=== PATIENT | female | born 1950 | race Caucasian/White ===

== ENCOUNTER 2017-06-13 07:30 | Inpatient (IN) ==
[~2017-06-13 07:30] MED LIST: ACETAMINOPHEN 500 MG TABLET PO ONE; DEXAMETHASONE 4 MG/ML INJECTION IVP ONE; FAMOTIDINE PB 20 MG/50 ML BAG IV ONE; LIDOCAINE 1% (10mg/ml) 2mL INJ PF SDV ID ONE; MELOXICAM 15 MG TABLET PO ONE; METOCLOPRAMIDE 10mg/2ml INJECTION IVP ONE; NOZIN NASAL SWAB NAS ONE; ONDANSETRON 4 MG/2 ML INJECTION IVP ONE; TRANEXAMIC ACID 1,000 MG in NS 100 ML IV ONE
[2017-06-13] MEDS ORDERED: EPINEPHrine PF 0.25 MG, BUPIVACAINE 0.25% PF 30 ML, MORPHINE SULFATE 15 MG, KETOROLAC I... OPSITE ONE (08:00)
[2017-06-13 08:26] VITALS: BMI 37.3
[2017-06-13] MEDS ORDERED: CEFAZOLIN 1 G INJECTION IVP ONE (08:35)
[2017-06-13] MEDS ORDERED: VANCOMYCIN 1,000 MG INJECTION ONE (09:22)
--- NOTE | 2017-06-13 09:29 | Anesthesia Preoperative Report ---
Anesthesia Preoperative Record - Date and Time Date: 06/13/17 Preoperative Diagnosis: RT TKA M17.11 Proposed Procedure: Right total knee replacement NPO Since Date: 06/13/17 NPO Since Time: 00:00 Allergies/Adverse Reactions: Allergies Allergy/AdvReac Type Severity Reaction Status Date / Time bee venom protein (honey bee) Allergy Unknown swelling, Verified 06/13/17 08:36 redness - Vital Signs Vital Signs: Temperature 98.6 F 06/13/17 08:26 Pulse Rate 85 06/13/17 08:44 Respiratory Rate 19 06/13/17 08:26 Blood Pressure 165/88 H 06/13/17 08:26 Pulse Oximetry 93 06/13/17 08:26 Height and Weight: Height 5 ft 1 in Weight 89.7 kg Body Mass Index 37.3 - Medications Inpatient Medications: Current Medications Lactated Ringer's (Lactated Ringers) 1,000 mls @ 50 mls/hr IV .Q20H COLEEN Last Admin: 06/13/17 08:49 Dose: 50 mls/hr Sodium Chloride (Iv Flush) 10 - 80 ml IV PRN PRN PRN Reason: [place] Home Medications: Home Medications Medication Instructions Recorded Confirmed Type Beclomethasone Dipropionate [Qvar 2 puff IH BID #0 12/01/14 06/13/17 History 80] Buspirone HCl 15 mg PO BID #0 12/01/14 06/13/17 History Lovastatin 20 mg PO HS #0 tab 12/01/14 06/13/17 History [place]-3S/Dha/Epa/Fish Oil [Fish 1,200 mg PO DAILY #0 cap 12/01/14 06/13/17 History Oil 1,200 mg Softgel] PARoxetine HCl [Paroxetine HCl] 40 mg PO DAILY #0 tab 12/01/14 06/13/17 History aspirin 81 mg chewable tablet 81 mg PO DAILY tab 04/08/17 06/13/17 History Albuterol HFA Inhaler [Ventolin 2 puff PO BID 06/06/17 06/13/17 History Hfa 90 mcg/actuation] Glucosamine 500 mg PO DAILY 06/06/17 06/13/17 History Multivitamin with Iron 1 each PO DAILY 06/06/17 06/13/17 History [Multivitamins with Iron] Propylthiouracil 1 tab PO DAILY 06/06/17 06/13/17 History CephALEXin [Keflex] 500 mg PO QID 06/13/17 06/13/17 History Is Patient on Beta Nora?: No - Medical History Respiratory: Reports: Asthma (well controlled) Cardiovascular: Reports: Heart Murmur (no cardiac followthrough), High Cholesterol, Valvular Heart Disease (MVP. Not significant) Gastrointestional: Reports: Morbid Obesity DENIES: Gastroesophageal Reflux Disease Renal/Endocrine: Reports: Thyroid Disease (Grave's/hyper. well controlled with meds) - Surgical History HEENT Surgeries: Reports: Tonsillectomy Respiratory Surgery/Treatments: Reports: CPAP Use GI Surgery/Treatments: Reports: Colonoscopy (diverticulosis) Musculoskeletal Surgery/Tx: Reports: Total Hip Replacement (Lt KELLEN) Anesthesia Reactions: None Hx Family Anesthesia Reaction: No History of Motion Sickness: No - Social History Smoking Status: Never smoker Substance Use Type: does not use - Pertinent Findings EKG: Sinus Rhythm - Physical Exam Respiratory Exam: Present: lungs clear, bilateral breath sounds equal Cardiovascular Exam: Present: regular rate and rhythm, systolic murmur (minor) - Airway Assessment Mallampati Score: II TMD: 3 Fingerbreadths Neck Extension: fair Teeth: chipped teeth/crowns (front top) Overall Assessment: no airway concerns - ASA ASA Score: 2 - Plan Anesthesia: General TIVA Peripheral Nerve Block: Other (post op adductor canal block) - Discussion Discussion: Discussed risks/options/alternatives of anesthesia and questions answered. Patient consents. Nursing pain assessment noted. Present for Discussion: children Attestation Statement: Prior to the delivery of any anesthetic medication, I examined the patient, developed the plan, obtained the patient's consent and discussed the risk and benefits of the procedure with the patient/guardian. - Additional Information Seen by Anesthesia: Yes
[2017-06-13] MEDS ORDERED: ANESTHESIA MIXTURE 50 ML IV ONE (09:30)
[2017-06-13] MEDS ORDERED: FentaNYL 100 MCG/2 ML INJECTION ONE (09:55)
[2017-06-13] MEDS ORDERED: MIDAZOLAM 2mg/2ml INJECTION ONE (09:55)
[2017-06-13] MEDS ORDERED: HYDROMORPHONE 2 MG/ML INJECTION ONE ×2 (10:14→11:56)
[2017-06-13] MEDS ORDERED: PROPOFOL 20 ML ONE ×2 (10:19→11:31)
[2017-06-13] MEDS ORDERED: VANCOMYCIN 1,000 MG INJECTION IAR ONE (11:00)
[2017-06-13] MEDS ORDERED: PROPOFOL 0 MG/0 ML VIAL IV ONE (11:26)
--- NOTE | 2017-06-13 11:33 | Operative Note ---
- Procedure Preoperative Diagnosis: Right knee primary degenerative joint disease Postoperative Diagnosis: Same as preoperative diagnosis. Surgeon: Shane Zepeda MD Printer'S Devil: Jefry Christianson Complications: None. Anesthesia: General Estimated Blood Loss: See Anesthesia Record. Fluids: Please see Anesthesia Record. Description of Procedure: Mrs. Perez and her right knee were identified and marked in the preoperative holding area. She was brought back to the operating suite after a saphenous nerve block was placed in the preoperative holding area. General anesthesia was administered. She was placed supine on the operating table. The right lower extremity was prepped and draped in my normal sterile fashion. Timeout was performed. The [employer] robot was used during the surgery. She had a fixed varus deformity with no flexion contracture. A standard anterior midline incision followed by medial parapatellar arthrotomy was performed. Anterior fat pad and meniscus were removed. The patella was resurfaced to a size 29. Tibial and femoral arrays were placed both within the original incision. Checkpoints were then placed both in the femur and the tibia. The bone was then registered with the [employer] robot. Osteophytes were removed and gaps were captured both 90 and 0 with correction. Because she had no flexion contracture and large posterior osteophytes I balanced her at 16 mm in extension 18 mm in flexion. The [employer] robotic arm was then used to assist with the bone cuts. Posterior osteophytes and remaining meniscus were removed. Trial components were placed. We used a 3 femur and a 3 tibia with a 11 mm spacer. I did perform a partial MCL release using an 18-gauge needle. She tracked well and was well balanced throughout range of motion. Her bone quality was very good so decision was made to use press-fit components. The components were then impacted into the bone. The knee was ranged one more time to ensure good stability, balance and patellar tracking. 1 g of vancomycin powder was then placed into the knee joint. The capsulotomy was then closed with #1 Vicryl. I then left my painter assistant to close the subcutaneous tissue with 2-0 Vicryl. Running 4-0 Monocryl will be used in the subcuticular layer. Dermabond will be used on the skin followed by sterile dressing. After drapes are removed patient will be taken to recovery room under the care of anesthesia.
[2017-06-13] MEDS ORDERED: ROPIVACAINE 0.5% (5mg/ml) 30ml INJ ONE (11:51)
--- NOTE | 2017-06-13 12:47 | XRay Report ---
Indication: postoperative image PROCEDURE: XR knee RT 2V: Encounter: Initial Comparison: April 08, 2017 Findings: Postoperative changes of right total knee replacement are seen. There is expected postoperative subcutaneous gas. No evidence of hardware failure or acute fracture. No retained radiopaque surgical instruments or sponges. Overlying material causing artifact. Impression: New right total knee prosthesis without evidence of immediate complication. .
[2017-06-13] MEDS ORDERED: TRAMADOL 50 MG TABLET PO PRN (13:02)
[2017-06-13] MEDS ORDERED: ONDANSETRON 4 MG/2 ML INJECTION IVP PRN (13:02)
[2017-06-13] MEDS ORDERED: NAPROXEN 220 MG TABLET PO PRN (13:02)
[2017-06-13] MEDS ORDERED: DiphenhydrAMINE 25 MG CAPSULE PO PRN (13:02)
[2017-06-13] MEDS ORDERED: NOZIN NASAL SWAB NAS ONE (13:02)
[2017-06-13] MEDS ORDERED: DiphenhydrAMINE 50 MG/ML INJECTION IVP PRN (13:02)
[2017-06-13] MEDS ORDERED: LORazepam 1 MG TABLET PO PRN (13:02)
[2017-06-13] MEDS: NS 1,000 ML IV SCH (13:07)
--- NOTE | 2017-06-13 13:43 | Anesthesia Procedure Note ---
Peripheral Nerve Blockade - Procedure Physician: Lalo Zepeda MD Date: 06/13/17 Surgical Procedure: Right total knee replacement Discussion: Discussed risks/options/alternatives of anesthesia and questions answered. Patient consents. Nursing pain assessment noted. Block Start: 12:09 Block Stop: 12:13 Blocked Employed: Adductor Canal Indication: Post-Operative Pain Approach: Right Side Confirmed Position: Supine Patient: Consent, Risks/Benefits Discussed, Informed, Post Block Act. Discussed IV Sedation: No Sedation: Awake Initial Vital Signs: Temperature 98.6 F 06/13/17 08:26 Temperature Source Oral 06/13/17 08:26 Pulse Rate 94 06/13/17 08:26 Respiratory Rate 19 06/13/17 08:26 Blood Pressure 165/88 H 06/13/17 08:26 Blood Pressure Mean 113 06/13/17 08:26 Blood Pressure Position Sitting 06/13/17 08:26 Pulse Oximetry 93 06/13/17 08:26 Oxygen Delivery Method 06/13/17 08:26 Post Vital Signs: Temperature 98.2 F 06/13/17 12:46 Pulse Rate 100 06/13/17 12:45 Respiratory Rate 14 06/13/17 12:45 Blood Pressure 113/57 06/13/17 12:45 Pulse Oximetry 96 06/13/17 12:45 Initial Pain Pain Score: 5 Post Block Pain Score: 4 Prep: Duraprep Ultrasound Used?: Yes - Injectate Ropivacaine (%): 0.5 Ropivacaine (mL): 20 Was Epi 1:200,000 Used?: No Injection: Injection made incrementally with constant monitoring and aspiration every ml
--- NOTE | 2017-06-13 13:44 | Anesthesia Postoperative Note ---
- Date and Time Date: 06/13/17 Time: 12:30 - Status Patient Participated in Evaluation: Patient Participated in Person Vital Signs: Temperature 98.2 F 06/13/17 12:46 Pulse Rate 100 06/13/17 12:45 Respiratory Rate 14 06/13/17 12:45 Blood Pressure 113/57 06/13/17 12:45 Pulse Oximetry 96 06/13/17 12:45 Respiratory Function: Airway Patent Cardiovascular Function: Regular Pulse EKG: Sinus Rhythm Mental Status: Alert and Oriented Hydration: IV Infusing Complications During Recover: None Apparent - Follow-Up Instructions Instructions: Per Surgeon
[2017-06-13] MEDS: ACETAMINOPHEN 325 MG TABLET PO SCH ×3 (17:34→22:02)
[2017-06-13] MEDS: NOZIN NASAL SWAB NAS SCH ×2 (17:42→22:02)
[2017-06-13] MEDS: DEXAMETHASONE 4 MG/ML INJECTION IVP SCH (17:44)
[2017-06-13] MEDS: CEFAZOLIN 2 G in NS 100 ML IV SCH (17:51)
[2017-06-13] MEDS ORDERED: SALINE FLUSH 10ml SYRINGE IV PRN (18:02)
[2017-06-13] MEDS ORDERED: LR 1,000 ML IV SCH (18:15)
[2017-06-13] MEDS: BUDESONIDE INH.SOLN 0.5mg/2ml NEB AEROSOL SCH (20:10)
[2017-06-13] MEDS: ALBUTEROL 2.5mg/3ml (0.083%) NEB AEROSOL SCH (20:10)
[2017-06-13] MEDS ORDERED: SENNOSIDES 8.6 MG TABLET PO SCH (21:00)
[2017-06-13] MEDS ORDERED: LOVASTATIN 20 MG TABLET PO SCH (21:00)
[2017-06-13] MEDS: DOCUSATE SODIUM 100 MG CAPSULE PO SCH (22:01)
[2017-06-13] MEDS: ASPIRIN *EC* 81 MG TABLET PO SCH (22:02)
[2017-06-13] MEDS: BUSPIRONE 15 MG TABLET PO SCH (22:03)
[2017-06-13] MEDS: PROPYLTHIOURACIL 50 MG TABLET PO SCH (22:03)
[2017-06-14] MEDS: DEXAMETHASONE 4 MG/ML INJECTION IVP SCH (01:52)
[2017-06-14] MEDS: CEFAZOLIN 2 G in NS 100 ML IV SCH (01:57)
[2017-06-14] MEDS: NS 1,000 ML IV SCH (03:11)
[2017-06-14 03:16] VITALS: RESP 18
[2017-06-14] MEDS: NOZIN NASAL SWAB NAS SCH ×2 (06:31→13:22)
--- NOTE | 2017-06-14 08:07 | Extended Care Facility Orders ---
Admission Orders Admit to:: Senior Care Allergies/Adverse Reactions: Allergies bee venom protein (honey bee) Allergy (Unknown, Verified 06/13/17 08:36) swelling, redness Admitting Diagnosis: RT TKA M17.11 Admitting Physician: Lalo Zepeda MD Attending Physician: Lalo Zepeda MD Anticiapted Length of Stay: 30 days or less Rehab Potential: good Rehab Prognosis: good Diet: 06/13/17 Dinner Regular Diet [DIET] Diet Modifications: May use Facility Protocol or Standing Orders: Yes May have flu vaccine: Yes Evaluations/Treatment: PT, OT Senior [facility] Certification: I certify that SNF services are required to be given on an Inpatient basis because of the patients need for shelter care on a continuing basis for the condition(s) for which he/she received inpatient hospital services prior to his/her transfer to the SNF. SNF inpatient care is necessary for the following reasons Indication for Senior Care: Postop Assessment Care - Additional Information In Event of Arrest: Start CPR,call 911,send patient to the ER Referrals: Lalo Zepeda MD [Physician] - 07/08/17 9:15 am
[2017-06-14] MEDS ORDERED: POLYETHYL GLYCOL 3350 17gm PACKET PO SCH (09:00)
[2017-06-14] MEDS ORDERED: PAROXETINE 40 MG TABLET PO SCH (09:00)
[2017-06-14] MEDS: ALBUTEROL 2.5mg/3ml (0.083%) NEB AEROSOL SCH (09:32)
[2017-06-14] MEDS: BUDESONIDE INH.SOLN 0.5mg/2ml NEB AEROSOL SCH (09:32)
[2017-06-14] MEDS: PROPYLTHIOURACIL 50 MG TABLET PO SCH (09:40)
[2017-06-14] MEDS: DOCUSATE SODIUM 100 MG CAPSULE PO SCH (09:41)
[2017-06-14] MEDS: BUSPIRONE 15 MG TABLET PO SCH (09:41)
[2017-06-14] MEDS: ACETAMINOPHEN 325 MG TABLET PO SCH ×2 (09:41→13:23)
[2017-06-14] MEDS: ASPIRIN *EC* 81 MG TABLET PO SCH (09:42)
--- NOTE | 2017-06-14 10:43 | Orthopedic Progress Note ---
Date: Subjective/Severity of Illness: Amy is doing well. No concerns. Planning to go to [facility] for recovery. Breathing is at baseline. Orthopedic Objective PO Vital signs: Temperature 98.8 F 06/14/17 08:09 Pulse Rate 86 06/14/17 08:09 Respiratory Rate 18 06/14/17 09:32 Blood Pressure 130/70 06/14/17 08:09 Pulse Oximetry 93 06/14/17 09:32 Height and Weight: Height 5 ft 1 in Weight 197 lb 8.547 oz Body Mass Index 37.3 - Constitutional General Appearance: Present: alert, no acute distress - Respiratory Exam Present: non-labored - Extremities Exam Extremities: Present: pulses intact. Absent: calf tenderness - Surgical Site Incision: Mepilex dressing intact, no drainage - Neurological Exam Present: no deficits - Psychiatric Exam Present: alert, normal affect - Labs Result Diagrams: 06/14/17 04:08 06/14/17 04:08 Abnormal lab results 06/14/17 06/14/17 Range/Units 04:08 04:08 WBC 13.4 H (4.5-11.0) T/MM3 RBC 3.83 L (4.00-5.20) M/MM3 Hgb 11.2 L (12-16) GM/DL Hct 35.5 L (36-46) % BUN 25.0 H (7-17) MG/DL Creatinine 0.6 L (0.7-1.2) MG/DL BUN/Creatinine Ratio 42 H (6-26) RATIO Glucose 139 H (65-110) MG/DL Calcium 8.3 L (8.4-10.2) MG/DL H & H 06/14/17 Range/Units 04:08 Hgb 11.2 L (12-16) GM/DL Hct 35.5 L (36-46) % Orthopedic Assessment and Plan (1) Primary osteoarthritis of right knee Status: Acute Assessment and Plan: Current anti-coagulation protocol for VTE prophylaxis. SCD's. PT/OT services to improve independent function. Discharge Planning per Case Management. IV steroids resulting in mild leukocytosis and hyperglycemia. Plan discharge to [facility] today. F/U as scheduled. - Anticoagulation Therapy Anticoagulation: ASA 81 mg PO BID x6 weeks Hospital Course Summary Disclaimer: The visit summary below is not to be considered part of the above Progress Note.
--- NOTE | 2017-06-14 10:47 | Extended Care Facility Orders ---
Admission Orders Admit to:: Correction Allergies/Adverse Reactions: Allergies bee venom protein (honey bee) Allergy (Unknown, Verified 06/13/17 08:36) swelling, redness Admitting Diagnosis: RT TKA M17.11 Admitting Physician: Lalo Zepeda MD Attending Physician: Lalo Zepeda MD Anticiapted Length of Stay: 30 days or less Rehab Potential: good Rehab Prognosis: good Diet: 06/13/17 Dinner Regular Diet [DIET] Diet Modifications: May use Facility Protocol or Standing Orders: Yes May have flu vaccine: Yes Evaluations/Treatment: PT, OT Correction Certification: I certify that SNF services are required to be given on an Inpatient basis because of the patients need for long term care on a continuing basis for the condition(s) for which he/she received inpatient hospital services prior to his/her transfer to the SNF. SNF inpatient care is necessary for the following reasons Indication for Correction: Postop Assessment Care - Additional Information In Event of Arrest: Start CPR,call 911,send patient to the ER Resident is Aware of Diagnosis: Yes Referrals: Lalo Zepeda MD [Physician] - 07/08/17 9:15 am Additional Orders: Keep incision dry. Do not remove the Mepilex dressing. Take aspirin as ordered for 6 weeks.
--- NOTE | 2017-06-14 10:52 | Discharge Summary ---
Orthopedic Discharge Info Date of admission: 06/13/17 08:07 Anticipated date of discharge: 06/14/17 Primary care physician: Bere Maxwell MD Attending Physician: Lalo Zepeda MD Consults: 06/13/17 08:33 Consult to Anesthesiology [CONS] Routine Consulting Provider: PRANAV Sibley Reason For Exam: Preoperative Assessment 06/13/17 10:14 Doctor [Physician Consult] [CONS] Routine Consulting Provider: Yaima Rust Reason For Exam: SNF Ordering Provider has Notified Manager Performance: Yes 06/13/17 13:02 Case Management Consult [CONS] Routine Reason For Exam: Discharge Planning DME-Walker [CONS] Routine Height: 5 ft 1 in Weight: 197 lb 12.074 oz Comment: change dressing in 2 weeks Total Joint Outpatient Therapy [CONS] Routine Comment: change dressing in 2 weeks - Discharge Diagnosis (1) Primary osteoarthritis of right knee Status: Acute - Procedures Procedures: Procedures Rt TKA 06/13/17. - Laboratory Result Diagrams: 06/14/17 04:08 06/14/17 04:08 Laboratory: Abnormal lab results 06/14/17 06/14/17 Range/Units 04:08 04:08 WBC 13.4 H (4.5-11.0) T/MM3 RBC 3.83 L (4.00-5.20) M/MM3 Hgb 11.2 L (12-16) GM/DL Hct 35.5 L (36-46) % BUN 25.0 H (7-17) MG/DL Creatinine 0.6 L (0.7-1.2) MG/DL BUN/Creatinine Ratio 42 H (6-26) RATIO Glucose 139 H (65-110) MG/DL Calcium 8.3 L (8.4-10.2) MG/DL H & H 06/14/17 Range/Units 04:08 Hgb 11.2 L (12-16) GM/DL Hct 35.5 L (36-46) % Orthopedic Discharge HPI - HPI Comments This patient was admitted for elective surgical tx of end stage degenerative joint disease that failed to respond to conservative treatment. Further details of this is found in the admission H&P. Orthopedic Hospital Course Hospital course: 06/14/17 10:48 After appropriate preoperative clearance and signing of operative consent, the patient was given IV antibiotics, according to orthopedic protocol. The patient was taken to the operating room and underwent a right total knee arthroplasty. Following surgery, antibiotics were discontinued less than 24 hours according to joint protocol. Appropriate anticoagulants were initiated and SCDs added for DVT prevention. The dressing was clean, dry, and intact. Pain control was obtained via multimodal approach. Bowel motivation addressed with scheduled and PRN medications. Early mobilization was initiated through PT services. Discharge arrangements made by a collaborative effort between the patient and Case Management. Follow-up is scheduled in 2-3 weeks. Discharge instructions given by orthopedic providers and nursing staff at discharge. Discharge condition was good. Ongoing care required?: No Discharge Plan - Med Rec/Dispo Referrals/Follow Up: Lalo Zepeda MD [Physician] - 07/08/17 9:15 am Jody Instructions: [facility] Postop Instructions Prescriptions: New Aspirin *EC* [Ecotrin] 81 mg PO BID tablet Docusate Sodium [Colace] 100 mg PO BID capsule Milk of Magnesia [Mom] 30 ml PO DAILY udc Tramadol [Ultram] 50 - 100 mg PO Q6H PRN #60 tab PRN Reason: Pain Acetaminophen [Tylenol] 650 mg PO QID tablet PEG 3350 17gm PACKET [Miralax] 17 gm PO DAILY packet Continue Beclomethasone Dipropionate [Qvar 80] 2 puff IH BID #0 Glucosamine 500 mg PO DAILY Albuterol HFA Inhaler [Ventolin Hfa 90 mcg/actuation] 2 puff PO BID Multivitamin with Iron [Multivitamins with Iron] 1 each PO DAILY CephALEXin [Keflex] 500 mg PO QID 5 Days #0 Buspirone HCl 15 mg PO BID #0 [place]-3S/Dha/Epa/Fish Oil [Fish Oil 1,200 mg Softgel] 1,200 mg PO DAILY #0 cap Lovastatin 20 mg PO HS #0 tab PARoxetine HCl [Paroxetine HCl] 40 mg PO DAILY #0 tab Propylthiouracil 1 tab PO BID Discontinued aspirin 81 mg chewable tablet 81 mg PO DAILY tab - Disposition 04 To [facility] Home/Facility
[2017-06-14] MEDS ORDERED: SENNOSIDES 8.6 MG TABLET PO PRN (11:54)
[2017-06-14 13:11] VITALS: BP 119/83; PULSE 105; TEMP 96.2; O2SAT 95
[2017-06-15] MEDS ORDERED: BISACODYL 10 MG SUPPOSITORY RECTALLY SCH (20:00)
== END 2017-06-14 15:25 | DRG 470 ==
LOC: SRG 08:07
PROVIDERS: ADMIT Orthopaedic Surgery; ATTEND Orthopaedic Surgery

== ENCOUNTER 2017-06-15 17:35 | Observation (INO) ==
[2017-06-15] MEDS ORDERED: NS 1,000 ML IV ONE (17:52)
[2017-06-15] MEDS ORDERED: SALINE FLUSH 10ml SYRINGE IVF PRN (17:52)
[2017-06-15] MEDS ORDERED: CEFTRIAXONE 1 G in NS 100 ML IV ONE (17:52)
[2017-06-15] MEDS ORDERED: SALINE FLUSH 10ml SYRINGE ONE (18:08)
[2017-06-15] MEDS ORDERED: NS 100 ML ONE (18:08)
[2017-06-15] MEDS ORDERED: IOHEXOL 350mg/ml 100ml INJECTION ONE (18:08)
--- NOTE | 2017-06-15 18:10 | Emergency Department Report ---
Fever HPI - General Chief Complaint: Recheck/Abnormal Lab/Rx Stated Complaint: Poss inf post surgery Time Seen by Provider: 06/15/17 17:42 Source: patient, RN notes reviewed, old records reviewed Mode of arrival: wheelchair Limitations: no limitations - History of Present Illness HPI Narrative: 66yo woman sent to the ER from her alf for fever, tachycardia, and warm LE. Pt had knee surgery at this facility a few days ago. Was discharged from here yesterday to her alf. Today, pt spiked a fever (Tmax 101.7'F ) and was found to be tachycardic. In addition, the alf nurses were concerned about incision, 'redness'. Pt was on keflex until yesterday. MD complaint: fever Onset (ago): hour(s) Maximum Temperature: 101.7 F Temperature Source: oral Context: recent procedure Associated symptoms: headache Relieving factors: acetaminophen Exacerbating factors: nothing - Related Data Home Medications Medication Instructions Recorded Confirmed Buspirone HCl 15 mg PO BID #0 12/01/14 06/15/17 Lovastatin 20 mg PO HS #0 tab 12/01/14 06/15/17 [place]-3S/Dha/Epa/Fish Oil [Fish 1,200 mg PO DAILY #0 cap 12/01/14 06/15/17 Oil 1,200 mg Softgel] PARoxetine HCl [Paroxetine HCl] 40 mg PO DAILY #0 tab 12/01/14 06/15/17 Albuterol HFA Inhaler [Ventolin 2 puff PO BID 06/06/17 06/15/17 Hfa 90 mcg/actuation] Glucosamine 500 mg PO DAILY 06/06/17 06/15/17 Multivitamin with Iron 1 each PO DAILY 06/06/17 06/15/17 [Multivitamins with Iron] Propylthiouracil 50 mg PO BID 06/06/17 06/15/17 Beclomethasone Dipropionate [Qvar 2 puff INH BID 06/15/17 06/15/17 40] Previous Rx's Medication Instructions Recorded Acetaminophen [Tylenol] 650 mg PO QID tablet 06/14/17 Aspirin *EC* [Ecotrin] 81 mg PO BID tablet 06/14/17 CephALEXin [Keflex] 500 mg PO QID 5 Days #0 06/14/17 Docusate Sodium [Colace] 100 mg PO BID capsule 06/14/17 Milk of Magnesia [Mom] 30 ml PO DAILY udc 06/14/17 PEG 3350 17gm PACKET [Miralax] 17 gm PO DAILY packet 06/14/17 Tramadol [Ultram] 50 - 100 mg PO Q6H PRN #60 tab 06/14/17 Allergies Allergy/AdvReac Type Severity Reaction Status Date / Time bee venom protein (honey bee) Allergy Unknown swelling, Verified 06/15/17 17:46 redness Review of Systems All systems: reviewed and negative except as stated Constitutional: Reports: as per HPI, fever. Denies: chills, weakness, weight change, night sweats Integumentary: Reports: as per HPI, change in pigmentation, erythema, swelling. Denies: alopecia, change in hair, change in nails, changing lesions, lesions, non-healing lesions, photosensitivity, pruritus, rash, wounds, jaundice PFSH Patient Stated Medical History Migraine Yes Heart Murmur Yes: no cardiac followthrough Valvular Heart Disease Yes: MVP. Not significant Asthma Yes: well controlled Gastroesophageal Reflux No Disease Hx Incontinence Yes: [facility] Medical History (Last Reviewed 05/22/17 @ 10:22 by Lalo Zepeda MD) Fever (Acute Medical) Aortic root dilation (Acute Medical) Mediastinal lymphadenopathy (Acute Medical) Hyperthyroidism (Acute Medical) Primary osteoarthritis of right knee (Acute Medical) ESTIVEN on CPAP (Acute Medical) Obesity (BMI 30-39.9) (Acute Medical) Hyperlipemia (Acute Medical) Asthma (Acute Medical) Anxiety (Acute Medical) Migraine (Acute Medical) Anxiety (Chronic Medical) Asthma (Chronic Medical) High cholesterol (Chronic Medical) Osteoporosis (Chronic Medical) Thyroid disease (Chronic Medical) Surgical History: tonsillectomy, Lt KELLEN Family History: Family History (Last Reviewed 05/22/17 @ 10:22 by Lalo Zepeda MD) Father High cholesterol Esophageal cancer Mother Asthma Hypothyroid - Social History Smoking status: Never smoker Physical Exam - Limitations Limitations: no limitations - General General appearance: alert, in no apparent distress, obese - Normal Exams: Head:: Normocephalic without trauma Eyes:: Pupils are PERRLA w/ EOMI, No scleral icterus, irritation, or foreign bodies noted ENMT:: No facial trauma, nasal exudates, pharyngeal erythema, or exudates are noted Neck:: Full range of motion, without adenopathy Chest/Respirations:: Clear all farr, with good airflow, and symmetry bilaterally Abdomen:: Bowel sounds positive, soft, non-tender, non-distended, no hepatosplenomegaly, masses or bruits noted Lymphatic:: No lymphadenopathy Integumentary:: No rashes, hives Neurological:: Patient is alert, and oriented Psychiatric:: Patient exhibits, appropriate attention - Cardiovascular Cardiovascular exam: Present: regular rate, normal rhythm, systolic murmur (At right sternal border. No carotid bruit.), +S1, +S2. Absent: normal heart sounds , diastolic murmur, +S3, +S4 - Expanded Lower Extremity Exam 1 - Erythema, warmth, swelling, and scattered bruising Course - Consultations Consultation #1: Ortho: Sx do not fit criteria for septic arthritis. Will eval knee in AM and tap /treat if needed. Is unaware if pt had aortic dilation vs valve dysfx. Time: 19:28 Consultation #2: Rafiq Telemed: Will admit for obs. Time: 19:40 Vital Signs Temperature 99.7 F 06/15/17 17:35 Pulse Rate 144 H 06/15/17 17:35 Respiratory Rate 24 06/15/17 17:35 Blood Pressure 152/92 H 06/15/17 17:35 Pulse Oximetry 93 06/15/17 17:35 Temperature 99.7 F 06/15/17 17:35 Pulse Rate 102 H 06/15/17 19:45 Respiratory Rate 33 H 06/15/17 19:45 Blood Pressure 148/79 H 06/15/17 19:30 Pulse Oximetry 95 06/15/17 19:45 Fever - MDM Narrative Medical decision making narrative: Pt without evidence of sepsis or septic arthritis. No PE on CT. - Differential Diagnosis Likely: cellulitis, gastroenteritis, community acquired pneumonia, viral infection, sepsis, influenza - Medical Records Attestation: I reviewed the patient's medical records. - Lab Data Attestation: I reviewed the patient's lab results. Result diagrams: 06/15/17 18:00 06/15/17 17:59 Lab Results 06/15/17 06/15/17 06/15/17 Range/Units 17:59 18:00 18:00 WBC 12.0 H (4.5-11.0) T/MM3 RBC 4.07 (4.00-5.20) M/MM3 Hgb 12.1 (12-16) GM/DL Hct 37.2 (36-46) % MCV 91.4 (80-100) UM3 MCH 29.7 (26-34) UUG MCHC 32.5 (31-37) GM/DL RDW Std Deviation 46.0 (36.9-50.2) FL Plt Count 327 (130-400) T/MM3 MPV 9.2 L (9.4-12.4) UM3 Immature Gran % (Auto) Not performed Neut % (Auto) Not performed Lymph % (Auto) Not performed [place] % (Auto) Not performed Eos % (Auto) Not performed Baso % (Auto) Not performed Neut # (Auto) Not performed Lymph # (Auto) Not performed [place] # (Auto) Not performed Eos # (Auto) Not performed Baso # (Auto) Not performed Abs Immat Gran (auto) Not performed Neutrophils % (Manual) 81.0 H (33-66) % Band Neutrophils % 1.0 (0-6) % Lymphocytes % (Manual) 8.0 L (23-45) % Monocytes % (Manual) 10.0 H (0-9.0) % Neutrophils # (Manual) 9.7 H (1.8-7.7) T/MM3 Band Neutrophils # 0.1 T/MM3 Lymphocytes # (Manual) 1.0 (1-4.8) T/MM3 Abs React Lymphs (Man) 1.2 H (0-0) T/MM3 Monocytes # (Manual) 1.2 H (0-0.8) T/MM3 RBC Morph Comment Normal Turbidity < 20 (0-20) Sodium 138 (134-144) MEQ/L Potassium 4.0 (3.6-5) MEQ/L Chloride 105 (98-107) MEQ/L Carbon Dioxide 24 (22-30) MEQ/L Anion Gap 9 (5-15) MEQ/L BUN 19.0 H (7-17) MG/DL Creatinine 0.5 L (0.7-1.2) MG/DL GFR Calculation 123 BUN/Creatinine Ratio 38 H (6-26) RATIO Glucose 118 H (65-110) MG/DL Calculated Osmolality 269 (261-280) MOSM/KG Calcium 8.3 L (8.4-10.2) MG/DL Total Bilirubin 0.60 (0.20-1.30) MG/DL Icterus Index < 2 (0-7) AST 26 (14-36) U/L ALT 35 (9-52) U/L Alkaline Phosphatase 66 (38-126) U/L Total Protein 6.7 (6.3-8.2) G/DL Albumin 3.7 (3.5-5.0) G/DL Globulin 3.0 (2.4-3.6) G/DL Albumin/Globulin Ratio 1.2 (1.1-2.2) RATIO Lipase 24 (23-300) U/L Plasma Lactate 1.0 (0.6-2.2) MMOL/L Specimen Hemolysis < 15 (0-25) Ur Collection Type Urine Color (YELLOW) Urine Clarity Urine pH (5.0-8.0) Ur Specific [place] (1.015-1.025) Urine Protein (NEGATIVE) Urine Glucose (UA) (NEGATIVE) Urine Ketones (NEGATIVE) Urine Occult Blood (NEGATIVE) Urine Nitrate (NEGATIVE) Urine Bilirubin (NEGATIVE) Urine Urobilinogen (NORMAL) EU/DL Ur Leukocyte Esterase (NEGATIVE) Urinalysis Comment 06/15/17 Range/Units 19:10 WBC (4.5-11.0) T/MM3 RBC (4.00-5.20) M/MM3 Hgb (12-16) GM/DL Hct (36-46) % MCV (80-100) UM3 MCH (26-34) UUG MCHC (31-37) GM/DL RDW Std Deviation (36.9-50.2) FL Plt Count (130-400) T/MM3 MPV (9.4-12.4) UM3 Immature Gran % (Auto) Neut % (Auto) Lymph % (Auto) [place] % (Auto) Eos % (Auto) Baso % (Auto) Neut # (Auto) Lymph # (Auto) [place] # (Auto) Eos # (Auto) Baso # (Auto) Abs Immat Gran (auto) Neutrophils % (Manual) (33-66) % Band Neutrophils % (0-6) % Lymphocytes % (Manual) (23-45) % Monocytes % (Manual) (0-9.0) % Neutrophils # (Manual) (1.8-7.7) T/MM3 Band Neutrophils # T/MM3 Lymphocytes # (Manual) (1-4.8) T/MM3 Abs React Lymphs (Man) (0-0) T/MM3 Monocytes # (Manual) (0-0.8) T/MM3 RBC Morph Comment Turbidity (0-20) Sodium (134-144) MEQ/L Potassium (3.6-5) MEQ/L Chloride (98-107) MEQ/L Carbon Dioxide (22-30) MEQ/L Anion Gap (5-15) MEQ/L BUN (7-17) MG/DL Creatinine (0.7-1.2) MG/DL GFR Calculation BUN/Creatinine Ratio (6-26) RATIO Glucose (65-110) MG/DL Calculated Osmolality (261-280) MOSM/KG Calcium (8.4-10.2) MG/DL Total Bilirubin (0.20-1.30) MG/DL Icterus Index (0-7) AST (14-36) U/L ALT (9-52) U/L Alkaline Phosphatase (38-126) U/L Total Protein (6.3-8.2) G/DL Albumin (3.5-5.0) G/DL Globulin (2.4-3.6) G/DL Albumin/Globulin Ratio (1.1-2.2) RATIO Lipase (23-300) U/L Plasma Lactate (0.6-2.2) MMOL/L Specimen Hemolysis (0-25) Ur Collection Type Urine, clean catch Urine Color Yellow (YELLOW) Urine Clarity Clear Urine pH 6.5 (5.0-8.0) Ur Specific [place] <=1.005 L (1.015-1.025) Urine Protein Negative (NEGATIVE) Urine Glucose (UA) Negative (NEGATIVE) Urine Ketones Negative (NEGATIVE) Urine Occult Blood Trace-lysed (NEGATIVE) Urine Nitrate Negative (NEGATIVE) Urine Bilirubin Negative (NEGATIVE) Urine Urobilinogen 0.2 (NORMAL) EU/DL Ur Leukocyte Esterase Negative (NEGATIVE) Urinalysis Comment Microscopic not ind. - Radiology Data Attestation: I reviewed the patient's radiology results. CXR: Widened mediatstinum. No acute osseus pathology. CT-PE: FINDINGS: Pulmonary arteries: Adequate opacification pulmonary arteries. No intraluminal filling defects. No CT evidence of pulmonary embolism. Aorta: Tortuous thoracic aorta. Some calcification. No aneurysm formation. Aneurysmal dilatation ascending aorta measuring 5.4 cm maximum AP dimension. Calcifications aortic root please correlate with any history or findings suggesting aortic stenosis. Normal caliber descending aorta. Lungs: No acute infiltrate. No mass. Pleural space: No pleural effusion. No pneumothorax. Heart: See above. Bones/joints: Degenerative change dorsal spine. No acute fracture. No dislocation. Soft tissues: Unremarkable. Lymph nodes: Up to 1.8 cm aorticopulmonary lymph node and pretracheal lymph nodes. IMPRESSION: 1. No CT evidence of pulmonary embolism. 2. Nonspecific mediastinal lymphadenopathy. 3. Dilated ascending aorta. - EKG Data EKG #1 EKG attestation: Yes: I reviewed and interpreted this EKG. EKG shows normal: sinus rhythm, axis, intervals, QRS complexes, ST-T waves Rate: tachycardia Disposition Clinical Impression: Aortic root dilation, Mediastinal lymphadenopathy Fever Qualifiers: Fever type: unspecified Qualified Code(s): R50.9 - Fever, unspecified Disposition: [facility] [place], [place] Prescriptions: No Action Glucosamine 500 mg PO DAILY Albuterol HFA Inhaler [Ventolin Hfa 90 mcg/actuation] 2 puff PO BID Multivitamin with Iron [Multivitamins with Iron] 1 each PO DAILY Aspirin *EC* [Ecotrin] 81 mg PO BID tablet Docusate Sodium [Colace] 100 mg PO BID capsule Milk of Magnesia [Mom] 30 ml PO DAILY udc Tramadol [Ultram] 50 - 100 mg PO Q6H PRN #60 tab PRN Reason: Pain CephALEXin [Keflex] 500 mg PO QID 5 Days #0 Beclomethasone Dipropionate [Qvar 40] 2 puff INH BID Buspirone HCl 15 mg PO BID #0 [place]-3S/Dha/Epa/Fish Oil [Fish Oil 1,200 mg Softgel] 1,200 mg PO DAILY #0 cap Lovastatin 20 mg PO HS #0 tab PARoxetine HCl [Paroxetine HCl] 40 mg PO DAILY #0 tab Propylthiouracil 50 mg PO BID Acetaminophen [Tylenol] 650 mg PO QID tablet PEG 3350 17gm PACKET [Miralax] 17 gm PO DAILY packet Referrals: Bere Maxwell MD [Family Provider] - Time of Disposition: 19:51 - Seen By: physician
[2017-06-15] MEDS ORDERED: SENNA + DOCUSATE TABLET PO PRN (20:43)
[2017-06-15] MEDS ORDERED: ONDANSETRON 4 MG/2 ML INJECTION IVP PRN (20:43)
[2017-06-15] MEDS ORDERED: MORPHINE SULFATE 2mg INJECTION IVP PRN (20:43)
[2017-06-15] MEDS ORDERED: LOVASTATIN 20 MG TABLET PO SCH (21:00)
[2017-06-15] MEDS: LR 1,000 ML IV SCH (21:03)
[2017-06-15 21:15] VITALS: BMI 38.9
[2017-06-15] MEDS ORDERED: ALBUTEROL 2.5mg/3ml (0.083%) NEB AEROSOL PRN (21:33)
[2017-06-15] MEDS: BECLOMETHASONE 40 MCG ORAL INH SCH (21:35)
--- NOTE | 2017-06-15 21:38 | History & Physical Report ---
History of Present Illness Date: 06/15/17 Chief complaint: fever HPI: Please note that the patient was seen via telemedicine with nursing assistance on 06/15/2017 Ms. Perez is a 66 yo woman with h/o Grave's disease, class 2 obesity BMI 39, DJD s/p L KELLEN 2014 and 06/13/2017 R TKA, dyslipidemia,and asthma discharged to SNF yesterday only to have fever to 102.7 today, chills and diaphoresis. No chest pain or sob, no productive cough. No dysuria with cephalexin prior to admit for incontinence thought due to UTI. No predominant ENT symptoms. No nausea or vomiting, and no diarrhea. Appetite poor. Knee feels better than yesterday. Review of Systems All systems PM: 10-point ROS was reviewed, no additional remarkable complaints except PFSH Patient Stated Medical History Migraine Yes Heart Murmur Yes: no cardiac followthrough Valvular Heart Disease Yes: MVP. Not significant Asthma Yes: well controlled Gastroesophageal Reflux No Disease Hx Incontinence Yes: [facility] Medical History (Last Reviewed 05/22/17 @ 10:22 by Lalo Zepeda MD) Fever (Acute Medical) Aortic root dilation (Acute Medical) Mediastinal lymphadenopathy (Acute Medical) Hyperthyroidism (Acute Medical) Primary osteoarthritis of right knee (Acute Medical) ESTIVEN on CPAP (Acute Medical) Obesity (BMI 30-39.9) (Acute Medical) Hyperlipemia (Acute Medical) Asthma (Acute Medical) Anxiety (Acute Medical) Migraine (Acute Medical) Anxiety (Chronic Medical) Asthma (Chronic Medical) High cholesterol (Chronic Medical) Osteoporosis (Chronic Medical) Thyroid disease (Chronic Medical) Surgical History: tonsillectomy, Lt KELLEN Family History: Family History (Last Reviewed 05/22/17 @ 10:22 by Lalo Zepeda MD) Father High cholesterol Esophageal cancer Mother Asthma Hypothyroid - Social History Smoking status: Never smoker Medications Home Medications Medication Instructions Recorded Confirmed Type Buspirone HCl 15 mg PO BID #0 12/01/14 06/15/17 History Lovastatin 20 mg PO HS #0 tab 12/01/14 06/15/17 History [place]-3S/Dha/Epa/Fish Oil [Fish 1,200 mg PO DAILY #0 cap 12/01/14 06/15/17 History Oil 1,200 mg Softgel] PARoxetine HCl [Paroxetine HCl] 40 mg PO DAILY #0 tab 12/01/14 06/15/17 History Albuterol HFA Inhaler [Ventolin 2 puff PO BID 06/06/17 06/15/17 History Hfa 90 mcg/actuation] Glucosamine 500 mg PO DAILY 06/06/17 06/15/17 History Multivitamin with Iron 1 each PO DAILY 06/06/17 06/15/17 History [Multivitamins with Iron] Propylthiouracil 50 mg PO BID 06/06/17 06/15/17 History Beclomethasone Dipropionate [Qvar 2 puff INH BID 06/15/17 06/15/17 History 40] Allergies Allergy/AdvReac Type Severity Reaction Status Date / Time bee venom protein (honey bee) Allergy Unknown swelling, Verified 06/15/17 17:46 redness Exam Vital Signs: Temperature 99.7 F 06/15/17 17:35 Pulse Rate 102 H 06/15/17 19:45 Respiratory Rate 33 H 06/15/17 19:45 Blood Pressure 148/79 H 06/15/17 19:30 Pulse Oximetry 95 06/15/17 19:45 Telemetry Rhythm: Sinus Rhythm Height/Weight/BMI: Height 1.55 m Weight 93.5 kg Body Mass Index 38.9 - Constitutional Present: no acute distress - Routine HEENT Exam Head: Present: normocephalic Eye: Present: EOMI - Routine Respiratory Exam Present: CTA bilaterally. Absent: accessory muscle use, dyspnea, respiratory distress - Routine Cardiovascular Exam Present: S1, S2, murmur Comments: 3-4 systolic murmur RUSB, but not harsh - Routine Abdominal Exam Present: soft, normoactive bowel sounds - Routine Skin Exam Comments: R knee with no wound dehiscence, with only mild erythema as expected, and ecchymosis mild lower medial margin and below - Routine Neurological Exam Present: alert, oriented X3 - Routine Psychiatric Exam Present: normal affect Results - Labs CBC & Chem 7: 06/15/17 18:00 06/15/17 17:59 Assessment and Plan (1) Fever Current visit: Yes Status: Acute (2) Hyperthyroidism Current visit: No Status: Acute (3) ESTIVEN on CPAP Current visit: No Status: Acute (4) Obesity (BMI 30-39.9) Current visit: No Status: Acute Assessment and Plan: 1. Fever with normal lactate and WBC better than on DC yesterday with pulse elevation then. No sepsis evident. Likely viral as too early for wound infection but will check ESR and CRP with AM labs and Dr. Zepeda to see. No pulm source as CT fine, and no urinary source. Viral pharyngitis likely. Repeat WBC count in AM as well. 2, DJD s/p R TKA. Dr. Zepeda to see with PT per him. 3. Obesity class 2 BMI 39 4. ESTIVEN on CPAP 5. Graves hyperthyroidism--confirm med dose. 6. Hyperlipidemia on statin. 7. MDD and anxiety on meds with positive response. 8. Aortic murmur with root dilatation on CT--outpt echo and eval likely needed unless inflammatory markers greatly elevated. DVT Prophylaxis: SCD's Hospital Course Summary Disclaimer: The visit summary below is not to be considered part of the above Progress Note.
[2017-06-15] MEDS: ASPIRIN *EC* 81 MG TABLET PO SCH (21:52)
[2017-06-15] MEDS: ACETAMINOPHEN 325 MG TABLET PO SCH (21:52)
[2017-06-15] MEDS: PROPYLTHIOURACIL 50 MG TABLET PO SCH (21:53)
[2017-06-16] MEDS ORDERED: FALL RISK - PHARMACY CONSULT XX ONE (01:13)
[2017-06-16] MEDS: TRAMADOL 50 MG TABLET PO PRN ×2 (05:22→17:16)
[2017-06-16] MEDS: LR 1,000 ML IV SCH ×2 (05:27→07:58)
--- NOTE | 2017-06-16 08:20 | Orthopedic Consult Note ---
Orthopedic Consultation HPI - Consultation Info Consult Date: 06/16/17 Attending Physician: Sharmin Dash MD - History of Present Illness Mrs. Perez is a kind 56-year-old female who is well-known to me. She underwent right total knee arthroplasty on 06/13/2017. She was discharged on Saturday to a [facility] and was doing very well at that time. On Saturday she had increasing right knee pain in the knee pain improved but she became diaphoretic. She had a temperature of 102 was brought in by the [facility] staff to the emergency room here [facility]. She is admitted then under the hospitalist service for fever. Currently this morning she states that her knee pain is controlled and she is been doing well physical therapy. She denies any drainage from the wound. Review of Systems - Constitutional Constitutional: Present: chills, fever(s). Absent: night sweats - Cardiovascular Cardiovascular: Absent: chest pain, palpitations - Respiratory Respiratory: Absent: cough, dyspnea - Gastrointestinal Gastrointestinal: Absent: abdominal pain, nausea, vomiting - Genitourinary Genitourinary Female: Absent: dysuria - Musculoskeletal Musculoskeletal: Present: as per HPI - Integumentary/Breasts Integumentary: Absent: lesions, rash - Neurological Neurological: Absent: numbness, tingling PFSH Patient Stated Medical History Migraine Yes Heart Murmur Yes: no cardiac followthrough Valvular Heart Disease Yes: MVP. Not significant Asthma Yes: well controlled Sleep Apnea Yes: wears Cpap at home Gastroesophageal Reflux No Disease Hx Incontinence Yes: [facility] Medical History (Last Reviewed 05/22/17 @ 10:22 by Lalo Zepeda MD) Fever (Acute Medical) Aortic root dilation (Acute Medical) Mediastinal lymphadenopathy (Acute Medical) Hyperthyroidism (Acute Medical) Primary osteoarthritis of right knee (Acute Medical) ESTIVEN on CPAP (Acute Medical) Obesity (BMI 30-39.9) (Acute Medical) Hyperlipemia (Acute Medical) Asthma (Acute Medical) Anxiety (Acute Medical) Migraine (Acute Medical) Anxiety (Chronic Medical) Asthma (Chronic Medical) High cholesterol (Chronic Medical) Osteoporosis (Chronic Medical) Thyroid disease (Chronic Medical) Surgical History: tonsillectomy, Lt KELLEN Family History: Family History (Last Reviewed 05/22/17 @ 10:22 by Lalo Zepeda MD) Father High cholesterol Esophageal cancer Mother Asthma Hypothyroid - Social History Smoking status: Never smoker Medications Home Medications Medication Instructions Recorded Confirmed Type Buspirone HCl 15 mg PO BID #0 12/01/14 06/15/17 History Lovastatin 20 mg PO HS #0 tab 12/01/14 06/15/17 History [place]-3S/Dha/Epa/Fish Oil [Fish 1,200 mg PO DAILY #0 cap 12/01/14 06/15/17 History Oil 1,200 mg Softgel] PARoxetine HCl [Paroxetine HCl] 40 mg PO DAILY #0 tab 12/01/14 06/15/17 History Albuterol HFA Inhaler [Ventolin 2 puff PO BID 06/06/17 06/15/17 History Hfa 90 mcg/actuation] Glucosamine 500 mg PO DAILY 06/06/17 06/15/17 History Multivitamin with Iron 1 each PO DAILY 06/06/17 06/15/17 History [Multivitamins with Iron] Propylthiouracil 50 mg PO BID 06/06/17 06/15/17 History Beclomethasone Dipropionate [Qvar 2 puff INH BID 06/15/17 06/15/17 History 40] Allergies Allergy/AdvReac Type Severity Reaction Status Date / Time bee venom protein (honey bee) Allergy Unknown swelling, Verified 06/15/17 17:46 redness Orthopedic Exam Vital signs: Temperature 99.7 F 06/16/17 04:38 Pulse Rate 94 06/16/17 00:00 Respiratory Rate 18 06/16/17 00:00 Blood Pressure 160/92 H 06/16/17 00:00 Pulse Oximetry 97 06/16/17 00:00 - Constitutional General Appearance: Present: no acute distress, well developed, well nourished - Respiratory Exam Present: non-labored - Cardiovascular Exam Present: pedal pulses intact - Integumentary Exam Present: pink, warm, dry - Neurological Exam Present: intact to light touch, no deficits - Psychiatric Exam Present: alert, normal affect - Additional findings Additional findings: The right knee has normal postoperative changes. There is a very scant amount of bloody drainage to the most superior aspect of the dressing. With the dressing removed her incisions clean dry and intact. She has normal expected ecchymosis about the knee and calf. Calf is soft. - Labs Result Diagrams: 06/16/17 04:14 06/16/17 04:14 Abnormal lab results 06/15/17 06/15/17 06/16/17 Range/Units 20:58 20:58 04:14 RBC 3.63 L (4.00-5.20) M/MM3 Hgb 10.7 L D (12-16) GM/DL Hct 33.7 L (36-46) % Lymphocytes % (Manual) 15.0 L (23-45) % Monocytes % (Manual) 18.0 H (0-9.0) % Monocytes # (Manual) 1.9 H (0-0.8) T/MM3 D-Dimer 457 H (0-230) NG/ML Creatinine (0.7-1.2) MG/DL Calcium (8.4-10.2) MG/DL C-Reactive Protein 75.5 H (0-9) MG/L 06/16/17 Range/Units 04:14 RBC (4.00-5.20) M/MM3 Hgb (12-16) GM/DL Hct (36-46) % Lymphocytes % (Manual) (23-45) % Monocytes % (Manual) (0-9.0) % Monocytes # (Manual) (0-0.8) T/MM3 D-Dimer (0-230) NG/ML Creatinine 0.5 L (0.7-1.2) MG/DL Calcium 8.1 L (8.4-10.2) MG/DL C-Reactive Protein (0-9) MG/L H & H 06/16/17 Range/Units 04:14 Hgb 10.7 L D (12-16) GM/DL Hct 33.7 L (36-46) % Impression and Recommendation (1) Status post right knee replacement Current visit: Yes Status: Acute I reviewed her exam as well as laboratory findings. Her CRP is elevated as expected at 74. Sedimentation rate is pending. The knee clinically looks normal for a 3 day postoperative total knee replacement. I will resume normal therapies while here in the hospital. Hospital Course Summary Disclaimer: The visit summary below is not to be considered part of the above Progress Note.
[2017-06-16 08:39] VITALS: O2SAT 96
[2017-06-16] MEDS ORDERED: PAROXETINE 40 MG TABLET PO SCH (09:00)
[2017-06-16] MEDS: ACETAMINOPHEN 325 MG TABLET PO SCH ×3 (09:13→17:16)
[2017-06-16] MEDS: ASPIRIN *EC* 81 MG TABLET PO SCH (09:13)
[2017-06-16] MEDS: PROPYLTHIOURACIL 50 MG TABLET PO SCH (09:13)
[2017-06-16] MEDS: BECLOMETHASONE 40 MCG ORAL INH SCH (09:29)
[2017-06-16 09:31] VITALS: RESP 18
--- NOTE | 2017-06-16 10:07 | CT Scan Report ---
Indication: Tachy; s/p knee replacement PROCEDURE: CT angio pulm emboli: Encounter: Initial Comparison: None Technique: Axial CT pulmonary angiographic phase images were performed through the chest after the administration of intravenous contrast. Coronal and Sagittal MIP reconstructed images were created and reviewed. Automated Exposure Control and Iterative Reconstruction dose reducing techniques were utilized. Contrast: Omnipaque 350 85 mL Findings: Pulmonary arteries: Exam is diagnostic to the segmental pulmonary arterial level. No filling defects identified to suggest a pulmonary embolus. Other findings: Minimal dependent atelectasis. Aneurysm of the adjacent aorta up to 5.4 cm in diameter. No lobar consolidation, pleural effusion or pneumothorax. No pulmonary masses. The central airways are patent. No axillary or mediastinal adenopathy. Heart size is normal. The upper abdomen shows no acute findings. Impression: 1. No pulmonary embolus or acute intrathoracic disease process seen. 2. 5.4 cm ascending aortic aneurysm. There is a preliminary report by virtual radiologic. .
--- NOTE | 2017-06-16 10:08 | XRay Report ---
Indication: Tachy PROCEDURE: XR chest 1V: Encounter: Initial Comparison: CT angiogram of the chest from the same date Findings: Lungs are clear no pleural effusion or pneumothorax. Cardiac silhouette is mildly enlarged. Aneurysm of the ascending thoracic aorta, better seen on CT. Pulmonary vascularity is normal. Impression: 1. No pneumonia. 2. Ascending aortic aneurysm. .
--- NOTE | 2017-06-16 10:56 | Discharge Summary ---
Discharge Information Date of admission: 06/15/17 20:12 Anticipated date of discharge: 06/16/17 Attending Physician: Dr Bhatt Primary care physician: Bere Maxwell MD Consults: Dr Zepeda for orthopedic evaluation - Discharge Diagnosis (1) Fever Status: Acute (2) ESTIVEN on CPAP Status: Acute (3) Hyperthyroidism Status: Acute (4) Obesity (BMI 30-39.9) Status: Acute Discharge diagnosis Febrile process Leukocytosis Associated conditions and complication 5.4 cm ascending aortic aneurysm Recent E coli UTI - resolved DJD - S/P Right TKA 06/13/17 - no evidence of joint infection per Dr Zepeda ESTIVEN addressed with CPAP Asthma - stable Obesity 39.0 - Laboratory Labs: Admit Lab 06/15/17 18:00 WBC 12.0 H Hgb 12.1 Hct 37.2 MCV 91.4 Plt Count 327 Neutrophils % (Manual) 81.0 H Band Neutrophils % 1.0 Lymphocytes % (Manual) 8.0 L Monocytes % (Manual) 10.0 H Admit Lab 06/15/17 17:59 Sodium 138 Potassium 4.0 Chloride 105 Carbon Dioxide 24 Anion Gap 9 BUN 19.0 H Creatinine 0.5 L GFR Calculation 123 BUN/Creatinine Ratio 38 H Glucose 118 H Calculated Osmolality 269 Calcium 8.3 L Total Bilirubin 0.60 AST 26 ALT 35 Alkaline Phosphatase 66 Total Protein 6.7 Albumin 3.7 Globulin 3.0 06/16/17 04:14 06/16/17 04:14 - Radiology Radiology: Date of Exam: 06/15/17 PROCEDURE: XR chest 1V Findings: Lungs are clear no pleural effusion or pneumothorax. Cardiac silhouette is mildly enlarged. Aneurysm of the ascending thoracic aorta , better seen on CT. Pulmonary vascularity is normal. Impression: 1. No pneumonia. 2. Ascending aortic aneurysm. Date of Exam: 06/15/17 PROCEDURE: CT angio pulm emboli Findings: Pulmonary arteries: Exam is diagnostic to the segmental pulmonary arterial level. No filling defects identified to suggest a pulmonary embolus. Other findings: Minimal dependent atelectasis. Aneurysm of the adjacent aorta up to 5.4 cm in diameter. No lobar consolidation, pleural effusion or pneumothorax. No pulmonary masses. The central airways are patent. No axillary or mediastinal adenopathy. Heart size is normal. The upper abdomen shows no acute findings. Impression: 1. No pulmonary embolus or acute intrathoracic disease process seen. 2. 5.4 cm ascending aortic aneurysm. History of Present Illness HPI: Ms. Perez is a 66 yo woman with h/o Grave's disease, class 2 obesity BMI 39, DJD s/p L KELLEN 2014 and 06/13/2017 R TKA, dyslipidemia,and asthma discharged to SNF yesterday only to have fever to 102.7 today, chills and diaphoresis. No chest pain or sob, no productive cough. No dysuria with cephalexin prior to admit for incontinence thought due to UTI. No predominant ENT symptoms. No nausea or vomiting, and no diarrhea. Appetite poor. Knee feels better than yesterday. For complete details of the H&P refer to that document. Objective Vital signs: Temperature 99.7 F 06/16/17 08:37 Pulse Rate 103 H 06/16/17 08:37 Respiratory Rate 18 06/16/17 09:32 Blood Pressure 159/93 H 06/16/17 08:37 Pulse Oximetry 96 06/16/17 08:37 Height/Weight/BMI: Height 1.55 m Weight 93.6 kg Body Mass Index 38.9 Hospital Course This is a general summary of the patient's hospital course. For more details refer to the complete medical record. Hospital course: 06/15/17 - OBS Admission Fever with normal lactate and WBC better than on DC yesterday with pulse elevation then. No sepsis evident. Likely viral as too early for wound infection but will check ESR and CRP with AM labs. Repeat WBC count in AM as well. Consult Dr. Zepeda for ortho and post op wound evaluation. No pulm source as CT fine, and no urinary source. Viral pharyngitis likely. 06/16/17 WBC normalized. No further temp elevations. Patient feeling much better. CT Scan showing 5.4 cm ascending aortic aneurysm. Discussed with Dr Dash (Cardiology) about ascending aortic aneurysm. Recommend ECHO now with Repeat CT in [address] finding and recommendations with patient and her son; they voiced understanding. F/U with Dr Maxwell this week. Will need ECHO now. Repeat CT in 6 months. Keep apt with Dr Zepeda on 07/08. Medically stable for discharge. Time spent with patient: discharge greater than 30 minutes DVT Prophylaxis: SCD's Discharge Plan - Discharge Disposition Discharge Date: 06/16/17 Disposition: 01 Discharged Home, Self-Care *Condition: Stable *Reason For Visit: Fever - Discharge Medications *Discharge Medications: New Senna + Docusate [Senna Plus Tablet] 1 tab PO BID PRN tablet PRN Reason: Constipation Continue Glucosamine 500 mg PO DAILY Albuterol HFA Inhaler [Ventolin Hfa 90 mcg/actuation] 2 puff PO BID Multivitamin with Iron [Multivitamins with Iron] 1 each PO DAILY Aspirin *EC* [Ecotrin] 81 mg PO BID tablet Docusate Sodium [Colace] 100 mg PO BID capsule Beclomethasone Dipropionate [Qvar 40] 2 puff INH BID Tramadol [Ultram] 50 - 100 mg PO Q6H PRN #60 tab PRN Reason: Pain Buspirone HCl 15 mg PO BID #0 [place]-3S/Dha/Epa/Fish Oil [Fish Oil 1,200 mg Softgel] 1,200 mg PO DAILY #0 cap Lovastatin 20 mg PO HS #0 tab PARoxetine HCl [Paroxetine HCl] 40 mg PO DAILY #0 tab Propylthiouracil 50 mg PO BID Acetaminophen [Tylenol] 650 mg PO QID tablet Changed Milk of Magnesia [Mom] 30 ml PO DAILY PRN #0 udc PRN Reason: Constipation PEG 3350 17gm PACKET [Miralax] 17 gm PO DAILY PRN #1 bottle PRN Reason: Constipation Discontinued CephALEXin [Keflex] 500 mg PO QID 5 Days #0 - Discharge Packet/Instructions *Diet: Regular *Activity: As tolerated *Pain Management/Treatment: Tramadol and Tylenol *Wound Care: Keep insicion dry. Do not remove Mepilex Additional Instructions: Take ASA 81mg BID for 6 week from surgery to decrease risk of blood clot. *Expected Signs/Symptoms: Resolution of fever *Notify Physician if: Temp > 100.4 Increased pain or redness to right knee. *During Business Hours Contact: Dr Maxwell or Dr Zepeda *After Business Hours Contact: Call [facility] [place] and have Dr Maxwell or Dr Zepeda paged. *Pending Lab/Results: Follow up w/your PCP - Referrals/Follow Up *Referrals/Follow Up: Bere Maxwell MD [Family Provider] - (F/U with Dr Maxwlel this week for evaluation. Will need ECHO secondary to 5.4 cm ascending aortic aneurysm and Repeat CT scan of chest in 6 months.) Lalo Zepeda MD [Physician] - (Appointment with Dr Zepeda for ortho evaluation on 07/08/17 ) - Patient Handouts - Dismissal Complete Discharge Instructions are:: Complete
[2017-06-16 15:59] VITALS: BP 139/78; PULSE 90; TEMP 99
== END 2017-06-16 18:15 | disposition home health service (06) ==
LOC: SRG 17:35 → ED 17:35 → SRG 20:40
PROVIDERS: ADMIT Hospitalist; ATTEND Internal Medicine Cardiovascular Disease